=== PATIENT | female | born 1965 | race Caucasian/White ===

== ENCOUNTER 2022-06-01 11:06 | Outpatient (CLI) | payer BC | END 2022-06-01 11:07 | disposition home or self-care (01) | LOC: CSHULT 11:06 | PROVIDERS: ATTEND Physician Assistant Medical | DX: K74.60 Unspecified cirrhosis of liver (principal); K75.81 Nonalcoholic steatohepatitis (NASH); Z87.19 Personal history of other diseases of the digestive system; D64.9 Anemia, unspecified; Z90.49 Acquired absence of other specified parts of digestive tract | CPT/HCPCS: 76705 ==